=== PATIENT | male | born 1965 | race Caucasian/White ===

== ENCOUNTER 2021-10-23 11:07 | Inpatient (IN) ==
[2021-10-23] MEDS: ceFAZolin 1000MG 1,000 MG/7.5 ML SYR IV SCH ×2 (14:08→21:34)
[2021-10-23] MEDS ORDERED: PHARMACY GLYCEMIC MGMT CONSULT PRN (16:26)
[2021-10-23] MEDS ORDERED: GLUCAGON FOR INJ 1 MG VIAL IM PRN (16:45)
[2021-10-23] MEDS ORDERED: DEXTROSE 50% 50 ML SYRINGE IV PRN (16:45)
[2021-10-23] MEDS ORDERED: CARBOHYDRATES FOR HYPOGLYCEMIA PO PRN (16:45)
[2021-10-23] MEDS ORDERED: GLUCOSE 40% GEL 15 GM TUBE PO PRN (16:45)
[2021-10-23] MEDS ORDERED: GLUCOSE 10 TABS/TUBE PO PRN (16:45)
[2021-10-23] MEDS ORDERED: INSULIN ASPART PER UNIT SC SCH (17:00)
[2021-10-23] MEDS: ACETAMINOPHEN 500 MG TAB PO SCH (18:16)
[2021-10-23] MEDS: oxyCODONE HCL IR 5 MG TAB (IMMEDIATE RELEASE) PO PRN (19:24)
[2021-10-23] MEDS: INSULIN ASPART PER UNIT SC SCH (21:22)
[2021-10-23] MEDS: ATORVASTATIN 40 MG TAB PO SCH (21:34)
[2021-10-23] MEDS: GABAPENTIN 100 MG CAP PO SCH (21:34)
[2021-10-23] MEDS: lamoTRIgine 25 MG TAB PO SCH (21:34)
[2021-10-23] MEDS: ASPIRIN 81 MG ECTAB PO SCH (21:34)
[2021-10-23] MEDS: lamoTRIgine 100 MG TAB PO SCH (21:35)
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
[2021-10-23 22:17] LABS: Basophils # (auto) 0.01 K/uL (0-0.2); Basophils % (auto) 0.1 %; Eosinophils # (auto) 0.11 K/uL (0-0.5); Eosinophils % (auto) 1.6 %; Hematocrit (blood only) 37.8 % (42-52); Hemoglobin 12.9 g/dL (14.0-18.0); Immature Granulocytes # (auto) 0.03 K/uL (0.00-0.02); Immature Granulocytes % (auto) 0.4 %; Lymphocytes # (auto) 1.87 K/uL (1.2-3.4); Lymphocytes % (auto) 27.8 %; Mean Corpuscular Hemoglobin 30.9 pg (25-34); Mean Corpuscular Hgb Conc 34.1 g/dL (32-36); Mean Corpuscular Volume 90.6 fL (80-100); Mean Platelet Volume 8.6 fL (7.4-10.4); Monocytes # (auto) 0.52 K/uL (0.11-0.59); Monocytes % (auto) 7.7 %; Neutrophils # (auto) 4.18 K/uL (1.4-6.5); Neutrophils % (auto) 62.4 %; Platelet Count 432 K/uL (130-400); RDW Coefficient of Variation 12.8 % (11.5-14.5); RDW Standard Deviation 42.6 fL (36.4-46.3); Red Blood Count 4.17 M/uL (4.7-6.1); White Blood Count 6.72 K/uL (4.8-10.8)
[2021-10-23 22:30] LABS: BUN Creatinine Ratio 32.4 (10-20); Calcium 9.1 mg/dl (8.5-10.1); Creatinine Clr Calc Pharmacy 152.5 ml/min; Est GFR (Non-African American) 105.3 ml/min; Potassium 3.7 mmol/L (3.5-5.1)
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
[2021-10-24] MEDS: INSULIN ASPART PER UNIT SC SCH ×6 (00:14→21:14)
[2021-10-24] MEDS: ceFAZolin 1000MG 1,000 MG/7.5 ML SYR IV SCH ×2 (05:53→13:03)
[2021-10-24] MEDS: lamoTRIgine 25 MG TAB PO SCH ×2 (07:43→21:12)
[2021-10-24] MEDS: CITALOPRAM 40 MG TAB PO SCH (07:43)
[2021-10-24] MEDS: GABAPENTIN 100 MG CAP PO SCH ×2 (07:44→21:12)
[2021-10-24] MEDS: LORATADINE 10 MG TAB PO SCH (07:44)
[2021-10-24] MEDS: ASPIRIN 81 MG ECTAB PO SCH ×3 (07:44→21:12)
[2021-10-24] MEDS: ACETAMINOPHEN 500 MG TAB PO SCH ×3 (07:44→21:11)
[2021-10-24] MEDS: FOLIC ACID 1 MG TAB PO SCH (07:44)
[2021-10-24] MEDS: PANTOprazole 40 MG TAB PO SCH (07:44)
[2021-10-24] MEDS: lamoTRIgine 100 MG TAB PO SCH ×2 (07:51→21:12)
--- NOTE | 2021-10-24 09:16 | History & Physical Bridge Note ---
Date of Service October 24, 2021 History & Physical Bridge Note I have examined the patient, reviewed the History & Physical and in the interval since the performance of the History & Physical I have noted the following changes of clinical significance: no changes noted
--- NOTE | 2021-10-24 09:36 | Progress Notes ---
DATE OF SERVICE: 10/24/2021. SUBJECTIVE: A 56-year-old gentleman now 3 weeks out from hardware removal from his right hip. He cobian s had persistent drainage and hematoma formation around his hip. We did treat him with antibiotics a nd watch this, but it continues to drain. He is having increasing pain. Since he has been admitted to the hospital, he is feeling somewhat better pain-hua. No other complaints. OBJECTIVE: VITAL SIGNS: Temperature is 36.8. Vital signs are stable. PHYSICAL EXAMINATION: GENERAL: Shows a pleasant middle-aged male. He is lying in bed, looks pretty comfortable this morni ng. LUNGS: Clear to auscultation. HEART: Regular rate and rhythm. ABDOMEN: Soft, nontender, nondistended. EXTREMITIES: Grossly neurovascularly intact except as follows: Examination of the right hip and leg reveals the dressing to be in place. There is some moderate bloody drainage on the dressing. Not m uch in the way of swelling. Leg lengths are equal. He is neurologically intact. He can dorsiflex a nd plantarflex his foot appropriately. LABORATORY DATA: White cell count is normal. Sed rate is elevated at 49. C-reactive protein 14.37. ASSESSMENT: A 56-year-old gentleman 3 weeks out from hardware removal with a significant right hip h ematoma, plus or minus underlying infection. His wound continues to drain. He has failed conservati ve care and is indicated for intervention. PLAN: We are going to take him to the operating room today and do an irrigation and debridement. We will clean this out to get rid of the hematoma. We will likely place some antibiotics in the wound. We will culture this. The risks and benefits have been explained, and he understands and desires t o proceed. Keep him n.p.o. until after surgery. DVT prophylaxis will be TEDs, SCDs, and aspirin. Job ID: [id number]
[2021-10-24] MEDS: amLODIPine BESYLATE 5 MG TAB PO SCH (10:05)
[2021-10-24] MEDS ORDERED: PNEUMOCOCCAL POLYSACCHARIDES 25 MCG/0.5 ML VIAL/SYR IM ONE (12:00)
[2021-10-24] MEDS ORDERED: MIDAZOLAM HCL 1 MG/ML 2ML VIAL ONE (14:10)
[2021-10-24] MEDS ORDERED: fentaNYL citrate 100 MCG/2 ML VIAL ONE ×2 (14:10→15:43)
[2021-10-24] MEDS ORDERED: SUCCINYLCHOLINE CHLORIDE 20 MG/ML 10 ML VIAL IV ONE (14:18)
[2021-10-24] MEDS ORDERED: LIDOCAINE 2% 2 ML VIAL/AMP(20MG/ML) INFIL ONE (14:18)
[2021-10-24] MEDS ORDERED: PROPOFOL IV EMULSION 10 MG/ML 20 ML VIAL IV ONE ×2 (14:18→15:46)
[2021-10-24] MEDS ORDERED: ONDANSETRON INJ 2 MG/ML 2 ML VIAL ONE (14:21)
[2021-10-24] MEDS ORDERED: ATROPINE SULFATE 0.1 MG/ML 10ML SYR IV PRN (14:36)
[2021-10-24] MEDS ORDERED: ONDANSETRON INJ 2 MG/ML 2 ML VIAL IV PRN ×2 (14:36→18:00)
[2021-10-24] MEDS ORDERED: fentaNYL citrate 100 MCG/2 ML VIAL IV PRN (14:36)
[2021-10-24] MEDS ORDERED: ePHEDrine sulfate 50 MG/ML AMP IV PRN (14:36)
[2021-10-24] MEDS ORDERED: ceFAZolin 330 MG/ML 1 GM VIAL ONE (15:05)
[2021-10-24] MEDS ORDERED: VANCOMYCIN HCL 1000MG/20ML VIAL ONE (15:05)
[2021-10-24] MEDS ORDERED: BUPIVACAINE 0.5 % 5 MG/1 ML MPF 30ML VIAL ONE (15:36)
[2021-10-24] MEDS ORDERED: EPINEPHrine INJ 1 MG/ML AMP ONE (15:36)
[2021-10-24] MEDS ORDERED: KETOROLAC 30 MG/ML VIAL ONE (15:43)
[2021-10-24] MEDS ORDERED: VANCOMYCIN HCL 1,750 MG in SODIUM CHLORIDE 0.9% 500 ML IV ONE (16:15)
--- NOTE | 2021-10-24 17:09 | Operative Report ---
PG Post Operative Report Pre & Post Diagnosis Operation Date: 10/24/21 09:20 Pre-Op Diagnosis: Right Hip Hematoma Post-Op Diagnosis: Right Hip Hematoma I identified the patient and participated in the time-out.: Yes Procedure Operation Date: 10/24/21 09:20 Actual Procedures p Right Hip Hematoma Incision and Drainage(Right) - Shaheen Dove MD Surgeon Shaheen Dove MD [employer] Ernesto Denis PA-C Estimated Blood Loss 200 Findings Consistent with Post-Op Diagnosis Operative findings were a fairly large extensive hematoma. There was some dehiscence of the IT band/gluteal fascia repair. The hematoma was deep and moderately extensive. There was no active bleeding. There did not look to be any purulence or pus. Fluids 1000 cc Specimens Fluid sent for stat Gram stain aerobic anaerobic culture. There is also some tissue sent for tissue culture. Anesthesia Type General Complications none Disposition Accompanied Patient To Recovery: No Indications Patient is a 56-year-old gentleman with a history of several hip surgeries in the past. He went through a hardware removal 3 weeks ago. Did well initially and then developed prior to increasing pain and persistent drainage out of his hip wound. We treated conservatively for a week without success. He was indicated for irrigation debridement culture and evacuation of hematoma. His initial surgery was very uneventful and there was not much bleeding at all. Exactly how he developed or why he developed a hematoma is a bit difficult to discern. He did have an episode where he had a near fall episode after surgery which potentially could have caused some muscle tearing which may have led to some bleeding. Description of Procedure The patient was taken the operating, identified, placed on the operating table supine position protectors were properly padded. A general anesthetic was employed by the anesthesia team. He had received antibiotics preoperatively. The patient was then placed in the left lateral decubitus position. Axillary roll was placed. Stulberg hip positioner was used for positioning. The right hip wound was then scrubbed. I then removed the odilia and then scrubbed it again with Hibiclens. We then prepped at and then draped in the usual sterile fashion. Previous wound was opened up for 6 extent. There was granulation tissue in various areas and some of the skin was excised back to healthy tissue. I opened it through down to the IT band and gluteal fascia and opened this as well. There was fairly significant large hematoma posteriorly. We evacuated the hematoma. We did send some fluid off for stat Gram stain aerobic anaerobic culture and some tissue off for a tissue culture. We then irrigated the wound extensively with 9 L of pulsatile lavage solution. I spent quite a bit of time looking for active bleeding and found none. There was some oozing. I did inject locally with 30 cc of half percent Marcaine with epinephrine to try to limit any further bruising/bleeding. We did place 2 g of vancomycin in the depth of wound. The IT band gluteal fascia then closed #1 PDS suture in running fashion. We did not place any subcutaneous stitches and then just placed a combination of #1 Prolene along with 2-0 nylon sutures in the skin. Leg was then cleaned and dried and a sterile wound VAC bandage was applied. The patient was then placed back on the or table in supine position. He was brought out of general anesthesia and transferred to the recovery in stable condition. Patient tolerated procedure well no complications. Ernesto Denis, my physician help desk assistant, was present for the entire procedure. His assistance was required for proper patient positioning, prepping and draping, surgical exposure, retraction, cleaning out of the wound. Closure of the wound, placement of the Prevena VAC dressing. I attest to the content of the Intraoperative Record and any orders documented therein. Any exceptions are noted below.
--- NOTE | 2021-10-24 17:47 | Anesthesiology Progress Note ---
Date of Service October 24, 2021 Anesthesia Post Procedure Vital Signs Vital Signs: Temp Pulse Pulse Resp BP BP Pulse Ox 10/24/21 17:40 36.4 C L 77 20 164/88 H 94 10/24/21 17:30 76 12 144/81 H 95 10/24/21 17:20 75 12 158/78 H 96 10/24/21 17:10 79 14 160/81 H 96 10/24/21 17:04 36.0 C L 83 14 181/90 H 96 10/24/21 14:30 36.6 C 76 16 147/80 H 95 10/24/21 07:18 36.8 C 78 16 163/83 H 91 10/24/21 00:54 147/84 H 10/24/21 00:06 36.8 C 82 16 115/71 155/83 H 96 Pain Intensity Right Hip: Pain Intensity: 3 Transfer of Care Handoff Completed per policy Notes Mental Status: alert / awake / arousable and participated in evaluation Patient Amnestic to Procedure: Yes Nausea / Vomiting: adequately controlled Pain: adequately controlled Airway Patency, RR, SpO2: stable & adequate BP & HR: stable & adequate Hydration State: stable & adequate Anesthetic Complications: no major complications apparent
[2021-10-24] MEDS ORDERED: diphenhydrAMINE Capsule 25 MG CAP PO PRN (18:00)
[2021-10-24] MEDS ORDERED: PHARMACY GLYCEMIC MGMT CONSULT PRN (18:00)
[2021-10-24] MEDS ORDERED: bisacodyL 10 MG SUPP PR PRN (18:00)
[2021-10-24] MEDS ORDERED: METOCLOPRAMIDE HCL INJ 5 MG/ML 2 ML VIAL IV PRN (18:00)
[2021-10-24] MEDS ORDERED: VANCOMYCIN CONSULT ACTIVE PRN (18:00)
[2021-10-24] MEDS ORDERED: ALUMINUM/MAGNESIUM SUSP 30 ML UDC PO PRN (18:00)
[2021-10-24] MEDS ORDERED: MAGNESIUM HYDROXIDE SUSP 30 ML UDC PO PRN (18:00)
[2021-10-24] MEDS ORDERED: NALOXONE HCL 0.4 MG/1 ML VIAL/CARP IV PRN (18:00)
[2021-10-24] MEDS: SODIUM CHLORIDE 0.9% 1000ML 1,000 ML IV SCH (18:10)
[2021-10-24] MEDS ORDERED: Nursing to Pharmacy Communication SCH (18:30)
[2021-10-24] MEDS: HYDROmorphone INJ 0.5 MG/0.5 ML SYR IV PRN (18:37)
[2021-10-24] MEDS ORDERED: INSULIN GLARGINE SOLOSTAR 100 UNITS/ML 3 ML PEN SC ONE (19:00)
[2021-10-24] MEDS: oxyCODONE HCL IR 5 MG TAB (IMMEDIATE RELEASE) PO PRN (19:44)
--- NOTE | 2021-10-24 19:53 | Pharmacy Report ---
Pharmacy Vanc AUC Short Note - Date of Service October 24, 2021 - Assessment & Plan Assessment 56 year old M receiving vancomycin for treatment of infected hip. Pertinent microbiologic data includes: N/A. Day # 1 of antimicrobial therapy. Plan Vancomycin * AUC/LOTTIE is the preferred PK/PD target for vancomycin * AUC guided dosing is effective and associated with decreased risk of nephrotoxicity compared to traditional trough targets * vancomycin 1500 mg IV q12 is predicted to achieve target AUC/LOTTIE of 400-600 mg/L.hr and may be associated with a 9 % risk of nephrotoxicity * Trough ordered for: 10/26/21 Pharmacy will continue to follow and will adjust dose/frequency as necessary. Thank you.
[2021-10-24] MEDS: ASCORBIC ACID 500 MG TAB PO SCH (21:10)
[2021-10-24] MEDS: DOCUSATE SODIUM 100 MG CAP PO SCH (21:12)
[2021-10-24] MEDS: ATORVASTATIN 40 MG TAB PO SCH (21:12)
[2021-10-24] MEDS: SENNA 8.6 MG TAB PO SCH (21:13)
[2021-10-24] MEDS ORDERED: ACETAMINOPHEN 500 MG TAB PO SCH (22:00)
[2021-10-24] MEDS ORDERED: TRANEXAMIC ACID / 0.7% NACL 1,000 MG/100 ML BAG IV SCH (23:00)
[2021-10-25] MEDS: VANCOMYCIN HCL 1,500 MG in SODIUM CHLORIDE 0.9% 500 ML IV SCH ×2 (01:21→13:15)
[2021-10-25] MEDS ORDERED: VANCOMYCIN HCL 2,000 MG in SODIUM CHLORIDE 0.9% 500 ML IV SCH (03:00)
[2021-10-25] MEDS: SODIUM CHLORIDE 0.9% 1000ML 1,000 ML IV SCH (04:09)
[2021-10-25 06:25] LABS: Hematocrit (blood only) 33.2 % (42-52); Hemoglobin 11.7 g/dL (14.0-18.0); Mean Corpuscular Hemoglobin 31.9 pg (25-34); Mean Corpuscular Hgb Conc 35.2 g/dL (32-36); Mean Corpuscular Volume 90.5 fL (80-100); Mean Platelet Volume 8.6 fL (7.4-10.4); Platelet Count 439 K/uL (130-400); RDW Coefficient of Variation 12.5 % (11.5-14.5); RDW Standard Deviation 41.7 fL (36.4-46.3); Red Blood Count 3.67 M/uL (4.7-6.1); White Blood Count 6.35 K/uL (4.8-10.8)
[2021-10-25] MEDS: oxyCODONE HCL IR 5 MG TAB (IMMEDIATE RELEASE) PO PRN ×2 (06:27→19:15)
[2021-10-25 06:48] LABS: BUN Creatinine Ratio 31.3 (10-20); Calcium 8.6 mg/dl (8.5-10.1); Est GFR (African American) 140.8 ml/min; Est GFR (Non-African American) 121.5 ml/min; Potassium 3.9 mmol/L (3.5-5.1)
[2021-10-25] MEDS: ASCORBIC ACID 500 MG TAB PO SCH ×2 (07:29→17:43)
[2021-10-25] MEDS: amLODIPine BESYLATE 5 MG TAB PO SCH (07:37)
[2021-10-25] MEDS ORDERED: dexAMETHasone 10 MG in SYRINGE 0 ML IV SCH (08:00)
[2021-10-25] MEDS ORDERED: INSULIN GLARGINE SOLOSTAR 100 UNITS/ML 3 ML PEN SC ONE (08:30)
[2021-10-25 08:33] LABS: Estimated Average Glucose 143 mg/dl; Hemoglobin A1C 6.6 % (4.5-5.6)
[2021-10-25] MEDS: INSULIN ASPART PER UNIT SC SCH ×4 (08:59→21:17)
--- NOTE | 2021-10-25 09:19 | Progress Notes ---
DATE OF SERVICE: 10/25/2021. SUBJECTIVE: A 56-year-old gentleman postoperative day 1 from an I and D of a right hip hematoma, sta tus post hardware removal with concerns of infection. He has got a wound VAC in place. He says his pain is much improved today. Just feels like a little healing and itching pain. No other complaints . No chest pain or shortness of breath. Not feeling dizzy or lightheaded. OBJECTIVE: VITAL SIGNS: Temperature 36.9. Vital signs are stable. EXTREMITIES: Right hip reveals the wound VAC dressing to be in place. Leg lengths were equal. Hip is located. He is neurologically intact. LABORATORY DATA: Hemoglobin 11.7. Hematocrit 33.2. Electrolytes are stable. CULTURE RESULTS: Culture results are pending. Gram stain of one of the cultures does show a pair of Gram-positive cocci. We will have to wait for final culture results. ASSESSMENT: This is a 56-year-old gentleman postoperative day 1 from an I and D of a right hip hemat dalila with a concern for infection. One gram stain does suggests of gram-positive cocci. Cultures are pending. PLAN: We are going to continue wound VAC in place. We are also going to continue antibiotic coverag e with vancomycin for now to cover any staph. I would like to see the sensitivities if possible befo re discharge. Pain is much improved. He can weight bear as tolerated. He is requiring continued ho spitalization at this point for antibiotic management. Job ID: [id number]
[2021-10-25] MEDS: GABAPENTIN 100 MG CAP PO SCH ×2 (10:35→20:22)
[2021-10-25] MEDS: MULTIVITAMIN TAB PO SCH (10:35)
[2021-10-25] MEDS: PANTOprazole 40 MG TAB PO SCH (10:35)
[2021-10-25] MEDS: lamoTRIgine 100 MG TAB PO SCH ×2 (10:36→20:21)
[2021-10-25] MEDS: LORATADINE 10 MG TAB PO SCH (10:36)
[2021-10-25] MEDS: DOCUSATE SODIUM 100 MG CAP PO SCH ×2 (10:37→20:21)
[2021-10-25] MEDS: ASPIRIN 81 MG ECTAB PO SCH ×4 (10:37→20:21)
[2021-10-25] MEDS: ACETAMINOPHEN 500 MG TAB PO SCH ×3 (10:37→20:20)
[2021-10-25] MEDS: CITALOPRAM 40 MG TAB PO SCH (10:37)
[2021-10-25] MEDS: FOLIC ACID 1 MG TAB PO SCH (10:37)
[2021-10-25] MEDS: HYDROmorphone INJ 0.5 MG/0.5 ML SYR IV PRN (10:42)
[2021-10-25] MEDS: lamoTRIgine 25 MG TAB PO SCH ×2 (12:38→20:21)
--- NOTE | 2021-10-25 14:03 | Pharmacy Report ---
Pharmacy Glycemic Short Note 2 - Date of Service October 25, 2021 - Glycemic Short BSG Results (Last 24 hours): 10/24/21 10/24/21 10/24/21 17:14 17:57 20:40 Glucose POC Glucose 190 H 172 H 205 H 10/25/21 10/25/21 10/25/21 06:06 08:20 12:02 Glucose 156 H POC Glucose 189 H 257 H OUTPATIENT ANTIDIABETIC REGIMEN: * Dapagliflozin 10 mg PO daily * Metformin 1 g PO BIDM * HbA1c: 6.6% (10/25/21) ASSESSMENT: * BT is a 56 year old male POD #1 s/p right hip hematoma I&D * BSGs trended up postoperatively, 190 and 205 mg/dL with fasting BSG of 189 mg/dL this morning * Received 20 units of Lantus and 11 units of Novolog yesterday * Dexamethasone 10 mg IV x 1 ordered this AM, will give ~0.4 unit/kg of adjusted body weight to cover steroid and tighten Novolog parameters * Patient with good outpatient glycemic control with orals only, expect significant reduction in insulin needs once steroids out of system * Receiving empiric vancomycin IV PLAN FOR INPATIENT GLYCEMIC CONTROL: * Hold outpatient oral diabetes medications * Basal insulin * Lantus 35 units (0.4 unit/kg adjusted body weight) x 1 with IV dexamethasone * Bolus insulin * NovoLog per scale ACHS or Q6hrs while NPO * Goal Range: Low 110 mg/dL - High 140 mg/dL * Correction Factor: 15 mg/dL/unit * Nutritional / Prandial insulin per carb ratio of 1 unit per 5 grams CHO consumed
[2021-10-25] MEDS: SENNA 8.6 MG TAB PO SCH (20:21)
[2021-10-25] MEDS: ATORVASTATIN 40 MG TAB PO SCH (20:21)
[2021-10-26] MEDS: oxyCODONE HCL IR 5 MG TAB (IMMEDIATE RELEASE) PO PRN ×3 (01:17→21:57)
[2021-10-26] MEDS: VANCOMYCIN HCL 1,500 MG in SODIUM CHLORIDE 0.9% 500 ML IV SCH ×3 (01:55→21:09)
[2021-10-26 07:26] LABS: Creatinine Clr Calc Pharmacy 207.4 ml/min; Est GFR (African American) 138.5 ml/min; Est GFR (Non-African American) 119.5 ml/min
[2021-10-26] MEDS: PANTOprazole 40 MG TAB PO SCH (08:44)
[2021-10-26] MEDS: FOLIC ACID 1 MG TAB PO SCH (08:44)
[2021-10-26] MEDS: LORATADINE 10 MG TAB PO SCH (08:44)
[2021-10-26] MEDS: MULTIVITAMIN TAB PO SCH (08:44)
[2021-10-26] MEDS: GABAPENTIN 100 MG CAP PO SCH ×2 (08:44→21:14)
[2021-10-26] MEDS: ASPIRIN 81 MG ECTAB PO SCH ×2 (08:45→21:14)
[2021-10-26] MEDS: lamoTRIgine 25 MG TAB PO SCH ×2 (08:45→21:16)
[2021-10-26] MEDS: lamoTRIgine 100 MG TAB PO SCH ×2 (08:45→21:15)
[2021-10-26] MEDS: ASCORBIC ACID 500 MG TAB PO SCH ×2 (08:45→17:37)
[2021-10-26] MEDS: ACETAMINOPHEN 500 MG TAB PO SCH ×3 (08:45→21:14)
[2021-10-26] MEDS: amLODIPine BESYLATE 5 MG TAB PO SCH (08:45)
[2021-10-26] MEDS: CITALOPRAM 40 MG TAB PO SCH (08:45)
[2021-10-26] MEDS: DOCUSATE SODIUM 100 MG CAP PO SCH ×2 (08:45→21:14)
[2021-10-26] MEDS: INSULIN ASPART PER UNIT SC SCH ×4 (08:58→21:21)
--- NOTE | 2021-10-26 11:21 | Progress Notes ---
DATE OF SERVICE: 10/26/2021. SUBJECTIVE: A 56-year-old gentleman now postop day 2 from I and D of a right hip hematoma after hard ballard removal. He is doing pretty well. He has been up and walking. Therapy has gone well. Pain se ems to be significantly improved. OBJECTIVE: VITAL SIGNS: Temperature 36.3. Vital signs are stable. He has been a bit hypertensive. GENERAL: Shows a pleasant middle-aged male. He is sitting up in bed and working on his computer. L ooks completely comfortable. EXTREMITIES: Examination of the right hip and leg reveals the dressing to be in place. He has got a Prevena wound VAC. No signs of problems. His leg lengths are equal. Hip is located. He is neurol ogically intact. CULTURE RESULTS: Culture results are showing pinpoint growth in one culture and no growth in the othe r, so far. ASSESSMENT: A 56-year-old gentleman postoperative day 2 from I and D of a right hip hematoma after h ardware removal with likely some degree of underlying infection. He had 1 gram stain, which showed s ome bacteria, now pinpoint growth on one of the cultures. PLAN: We are going to wait and see what these cultures grow out. We are going to continue on broad- spectrum antibiotics covering staph consisting of vancomycin for now. Hopefully, we will be able to confirm something reasonably oral. He is going to continue therapy. Continue wound VAC. Continue D VT prophylaxis includes thigh-high TEDs, SCDs, and aspirin. Job ID: [id number]
[2021-10-26] MEDS ORDERED: VANCOMYCIN TROUGH ONE (13:30)
--- NOTE | 2021-10-26 14:14 | Pharmacy Report ---
Pharmacy Glycemic Short Note 2 - Date of Service October 26, 2021 - Glycemic Short BSG Results (Last 24 hours): 10/25/21 10/25/21 10/26/21 17:12 20:58 08:12 POC Glucose 222 H 159 H 117 H 10/26/21 12:08 POC Glucose 121 H OUTPATIENT ANTIDIABETIC REGIMEN: * Dapagliflozin 10 mg PO daily * Metformin 1 g PO BIDM * HbA1c: 6.6% (10/25/21) ASSESSMENT: 10/26 * Patient received total of 88 units of insulin yesterday, of which 35 units were Lantus to cover steroids * No steroids currently ordered, fasting BSG 117 mg/dL - will hold basal insulin for now * May loosen CF/CR later today with steroids no longer on board 10/25 * BT is a 56 year old male POD #1 s/p right hip hematoma I&D * BSGs trended up postoperatively, 190 and 205 mg/dL with fasting BSG of 189 mg/dL this morning * Received 20 units of Lantus and 11 units of Novolog yesterday * Dexamethasone 10 mg IV x 1 ordered this AM, will give ~0.4 unit/kg of adjusted body weight to cover steroid and tighten Novolog parameters * Patient with good outpatient glycemic control with orals only, expect significant reduction in insulin needs once steroids out of system * Receiving empiric vancomycin IV PLAN FOR INPATIENT GLYCEMIC CONTROL: * Hold outpatient oral diabetes medications * Basal insulin * Lantus - hold * Bolus insulin * NovoLog per scale ACHS or Q6hrs while NPO * Goal Range: Low 110 mg/dL - High 140 mg/dL * Correction Factor: 20 mg/dL/unit * Nutritional / Prandial insulin per carb ratio of 1 unit per 7 grams CHO consumed
--- NOTE | 2021-10-26 14:18 | Pharmacy Report ---
Pharmacy Vanc AUC Short Note - Date of Service October 26, 2021 - Assessment & Plan Assessment 56 year old M receiving IV Vancomycin for treatment of infected hip. Day # 3 of antimicrobial therapy. Plan Vancomycin * AUC/LOTTIE is the preferred PK/PD target for vancomycin * AUC guided dosing is effective and associated with decreased risk of nephrotoxicity compared to traditional trough targets * Trough level of 5.8 mcg/mL is subtherapeutic and NOT predicted to achieve therapeutic Vancomycin AUC/LOTTIE. Patient is clearing Vancomycin more rapidly than anticipated and requires a higher dose. No renal impairment noted (CrCl >100 mL/min). Will decr' dosing interval to target a higher trough. * Change to 1500 mg IV every 8 hours. According to [facility], this regimen predicted to achieve target AUC/LOTTIE of 400-600 mg/L.hr and may be associated with a 8 % risk of nephrotoxicity * Trough level ordered for: 10/27/21 @ 1130 (prior to 3rd dose and therefore not reflective of steady state, but need to assess dosing regimen earlier due to subtherapeutic trough today and morbid obesity, which incr' risk for Vancomycin drug accumulation) Pharmacy will continue to follow and will adjust dose/frequency as necessary. Thank you.
[2021-10-26] MEDS: SENNA 8.6 MG TAB PO SCH (21:14)
[2021-10-26] MEDS: ATORVASTATIN 40 MG TAB PO SCH (21:15)
[2021-10-27] MEDS: VANCOMYCIN HCL 1,500 MG in SODIUM CHLORIDE 0.9% 500 ML IV SCH (04:36)
[2021-10-27 07:28] LABS: Creatinine Clr Calc Pharmacy 246.9 ml/min; Est GFR (African American) 148.7 ml/min; Est GFR (Non-African American) 128.3 ml/min
[2021-10-27] MEDS: lamoTRIgine 100 MG TAB PO SCH (08:41)
[2021-10-27] MEDS: GABAPENTIN 100 MG CAP PO SCH (08:41)
[2021-10-27] MEDS: amLODIPine BESYLATE 5 MG TAB PO SCH (08:41)
[2021-10-27] MEDS: PANTOprazole 40 MG TAB PO SCH (08:41)
[2021-10-27] MEDS: lamoTRIgine 25 MG TAB PO SCH (08:42)
[2021-10-27] MEDS: DOCUSATE SODIUM 100 MG CAP PO SCH (08:42)
[2021-10-27] MEDS: ASCORBIC ACID 500 MG TAB PO SCH (08:42)
[2021-10-27] MEDS: FOLIC ACID 1 MG TAB PO SCH (08:42)
[2021-10-27] MEDS: MULTIVITAMIN TAB PO SCH (08:42)
[2021-10-27] MEDS: ASPIRIN 81 MG ECTAB PO SCH (08:42)
[2021-10-27] MEDS: LORATADINE 10 MG TAB PO SCH (08:43)
[2021-10-27] MEDS: CITALOPRAM 40 MG TAB PO SCH (08:43)
[2021-10-27] MEDS: INSULIN ASPART PER UNIT SC SCH (08:44)
[2021-10-27] MEDS: ACETAMINOPHEN 500 MG TAB PO SCH (08:50)
[2021-10-27] MEDS ORDERED: CIPROFLOXACIN 500 MG TAB PO SCH (09:00)
--- NOTE | 2021-10-27 09:06 | Progress Notes ---
DATE OF SERVICE: 10/27/2021. SUBJECTIVE: A 56-year-old gentleman now postop day 3 from an I and D of a right hip hematoma with apparent underlying infection. He is doing well. Pain seems to be much improved. No new complaints. Anxious to get out of the hospital. OBJECTIVE: VITAL SIGNS: Temperature 36.6. Vital signs stable. GENERAL: Shows a pleasant middle-aged male. He is sitting up in bed, looks comfortable. EXTREMITIES: Examination of the right hip reveals the Wound VAC to be in place. There is blood-tinge to the dressing. No significant swelling. Leg lengths were equal. Hip is located. He is neurologically intact. LABORATORY DATA: Culture results are growing methicillin-sensitive Staphylococcus as well as some Pseudomonas. ASSESSMENT: A 56-year-old gentleman postoperative day 3 from an I and D of an infected right hip hematoma. It is growing out methicillin-sensitive Staphylococcus along with Pseudomonas. PLAN: He has got a Wound VAC in place. We will continue that. Continue DVT prophylaxis. We are going to convert him to Keflex along with Cipro and hopefully discharge today. Job ID: [id number] [facility]
[2021-10-27] MEDS ORDERED: VANCOMYCIN TROUGH ONE (11:30)
--- NOTE | 2021-11-01 10:50 | Discharge Summary ---
Date of Service November 01, 2021 Discharge Data Procedures Performed Operation Date: 10/24/21 09:20 Actual Procedures p Right Hip Hematoma Incision and Drainage(Right) - Shaheen Dove MD Hospital Course (1) Hematoma of right hip: This patient is a 56 year old admitted on 10/24/21 and underwent I and D of the right hip. He tolerated the procedure well and there were no complications. Transferred to the PACU post op and later to the orthopedic floor for further care. He was given antibiotic prophylaxis. He was also given ANNEMARIE stockings, SCDs, and aspirin for DVT prophylaxis. Hemoglobin, hematocrit, and vital signs were monitored during his hospital stay and remained stable. Did not require any blood transfusions. There were no complications during his hospital stay. His cultures from the wound did grow MSSA and pseudomonas. By post op day #3 the patient was tolerating a diabetic diet, pain was reasonably controlled with oral pain medicine, and he was participating in physical therapy. On post op day #3 the patient was discharged home and set up with home health care. He had a prevena wound vac on. He was given printed discharge instructions including prescriptions for extra strength tylenol, aspirin, cipro, keflex, toradol, and oxycodone. Continue physical therapy, weight bearing as tolerated. Continue ANNEMARIE stockings. Follow up approximately 2 weeks post op or sooner if there are problems or concerns. Coding Level of Care Code None Diagnoses Hematoma of right hip S70.01XA
== END 2021-10-27 10:32 | disposition home health service (06) | DRG 921 ==
LOC: 3W 11:44
PROC: M.IDHIP (2021-10-24 09:20)